=== PATIENT | female | born 1985 | race Hispanic/Latino ===

== ENCOUNTER 2019-11-11 06:13 | Day surgery (SDC) | payer BC ==
[2019-11-08 09:47] VITALS: BMI 32.9
[2019-11-11] MEDS ORDERED: Gentamicin 80 MG/2 ML VIAL ONE (06:43)
[2019-11-11] MEDS ORDERED: Lidocaine 1% w/Epinephrine 1:100K 20 ML VIAL ONE (06:43)
[2019-11-11] MEDS ORDERED: Bupivacaine 0.25% HCL 30 ML VIAL ONE (06:43)
[2019-11-11] MEDS ORDERED: Sodium Chloride 0.9% 20 ML ONE (07:00)
[2019-11-11] MEDS ORDERED: Heparin 5,000 UNITS/ML VIAL ONE (07:07)
[2019-11-11] MEDS ORDERED: Midazolam HCl 2 mg/2 ml Vial ONE (07:08)
[2019-11-11] MEDS ORDERED: Fentanyl 100 MCG/2 ML VIAL ONE ×4 (07:15→12:07)
[2019-11-11 07:31] LABS: BHCG - Serum Negative (NEGATIVE); Pregs Control Background? CLEAR/WHITE (CLR/WHITE); Pregs Control Bar Appear? YES (CONTROL BAR)
[2019-11-11] MEDS ORDERED: EPINEPHrine 1 MG/ML AMP ONE (07:41)
[2019-11-11] MEDS ORDERED: Glycopyrrolate 0.2 MG/ML 5 ML SYRINGE ONE (10:13)
[2019-11-11] MEDS ORDERED: Rocuronium Bromide 10 MG/ML (10ML VIAL) ONE (10:13)
[2019-11-11] MEDS ORDERED: PROPOFOL 200 MG/20 ML VIAL ONE (10:13)
[2019-11-11] MEDS ORDERED: Lidocaine 1% PF 5 ML VIAL ONE (10:13)
[2019-11-11] MEDS ORDERED: Dexamethasone 20 MG/5 ML VIAL ONE (10:13)
[2019-11-11] MEDS ORDERED: PHENYLEPHRINE-NS 100 MCG/ML 10 ML SYRINGE ONE (10:13)
[2019-11-11] MEDS ORDERED: Metoclopramide HCl 10 MG/2 ML VIAL ONE (10:13)
[2019-11-11] MEDS ORDERED: Ondansetron PF 4 MG/2 ML Vial ONE (10:13)
[2019-11-11] MEDS ORDERED: HYDROcodone/Acetaminophen 5/325 mg Tablet ONE (13:41)
--- NOTE | 2019-11-12 14:41 | OP ---
DATE OF PROCEDURE: 11/11/2019 PREOPERATIVE DIAGNOSIS: Symptomatic macromastia. POSTOPERATIVE DIAGNOSIS: Symptomatic macromastia. PROCEDURE: Bilateral breast reduction. DESCRIPTION OF PROCEDURE: Following induction of adequate anesthesia, the patient was prepped and draped in usual sterile fashion in the supine position. Modified Rodriguez pattern incisions were made. The skin over the inferior pole of the breast was de-epithelialized. Dermal glandular units were resected superiorly, medially, and laterally to sculpt a pedicle that preserved viability and sensibility. The nipple was brought out through a 42-mm nipple defect and then as the modified Rodriguez pattern was closed with 3-0 PDS suture and a 3-0 Monocryl suture. The field was copiously irrigated and inspected for meticulous hemostasis prior to closure. A similar procedure was done on each side. Job ID: [id number]
== END 2019-11-11 14:40 | disposition home or self-care (01) ==
LOC: SDC 06:13
PROVIDERS: ATTEND Plastic Surgery
PROC: 0HBV0ZZ Excision of Bilateral Breast, Open Approach (ICD-10-PCS; principal; 2019-11-11)
DX: N62 Hypertrophy of breast (principal)
CPT/HCPCS: 36415; 84703; 88305; J0171; J0690; J1100; J1580; J1644; J2001; J2250; J2405; J2704; J2765; J3010; J3370; J3490; S0020